=== PATIENT | male | born 1965 | race Caucasian/White ===

== ENCOUNTER 2017-10-29 06:56 | Emergency (ER) | payer OTHER ==
[~2017-10-29] VITALS: Ht 172.7 cm; Wt 113.3 kg
[~2017-10-29 06:56] MED LIST: NORCO 5/3251 TABLET PO; ONE DAILY GUM200 MCG PO; PROBIOTIC1 EAC1 PO; XALATAN2.5 ML BOTH EYES
[2017-10-29] MEDS ORDERED: ULTRAM50 MG PO (09:55)
[2017-10-29 10:14] VITALS: BP 132/86
== END 2017-10-29 10:17 | disposition home or self-care (01) ==
LOC: EME 06:56
DX: M79.601 Pain in right arm (principal)
CPT/HCPCS: 73030; 73060; 93971; 99281; 99284